=== PATIENT | male | born 2000 | race Caucasian/White ===

== ENCOUNTER 2022-08-19 14:43 | Emergency (ER) | payer OTHER, SELFPAY ==
--- NOTE | ~2022-08-19 | XR_ITS ---
EXAMINATION: XR ANKLE, LEFT CLINICAL INFORMATION: Pain COMPARISON: None TECHNIQUE: AP, lateral, and mortise views of the left ankle. FINDINGS: No acute fracture or dislocation. Ankle mortise is congruent. Talar dome intact. Small ankle joint effusion. Soft tissue swelling anterior and lateral to the ankle. No radiopaque foreign bodies. XR/XR ankle LT min 3V IMPRESSION: * No acute fracture or dislocation. * Small ankle joint effusion.
[2022-08-19 15:09] VITALS: BP 135/86; PULSE 66; RESP 18; TEMP 36.6; O2SAT 99; BMI 40.1
--- NOTE | 2022-08-19 15:10 | ED.GENADULT ---
HPI - General Adult General Chief complaint: Extremity Injury, Lower Stated complaint: Ankle inj Time Seen by Provider: 08/19/22 17:58 Source: patient and RN notes reviewed Mode of arrival: ambulatory History of Present Illness HPI narrative: 22-year-old male presents for evaluation of left ankle pain. He reports he was out shoveling yesterday and twisted his left ankle He reports that he fell to the ground but did not hit his head or lose consciousness. He has been able to walk but has pain to his left ankle He reports mild, 5/10 pain that is worse with walking He used ibuprofen and ice with minimal improvement Related Data Allergies Allergy/AdvReac Type Severity Reaction Status Date / Time No Known Allergies Allergy Verified 08/19/22 15:09 Review of Systems Constitutional: Constitutional: Reports as per HPI, Denies chills and Denies fatigue Cardiovascular: Cardiovascular: Denies chest pain and Denies dyspnea Respiratory: Respiratory: Denies cough and Denies dyspnea Gastrointestinal: Gastrointestinal: Denies abdominal pain, Denies constipation and Denies vomiting Genitourinary: Genitourinary: Denies difficulty urinating and Denies dysuria Musculoskeletal: Musculoskeletal: Reports arthralgias and Reports joint swelling Endocrine: Endocrine: Denies fatigue Physical Exam ED Vital Signs: Vital Signs - 24 hr 08/19/22 15:09 Temperature 97.8 F Pulse Rate 66 Respiratory Rate 18 Blood Pressure 135/86 Pulse Oximetry 99 Oxygen Delivery Method Room Air BMI result Body Mass Index 40.1 Const General: healthy appearing, comfortable, no acute distress, alert and awake Nutritional Appearance: well nourished Orientation/consciousness: patient oriented x3 Eyes Eyelids: Yes eyelids normal Conjunctivae: conjunctivae normal Sclerae: sclerae normal Corneas: corneas normal Pupils: Equal, round and reactive pupils present EOM: EOMs intact bilaterally Resp Effort & Inspection: normal respiratory effort, able to speak in complete sentences, no audible wheezes and not labored Skin General skin exam: no rashes or lesions noted and elasticity normal Lesions: no lesions Rashes: no rashes Neuro General: patient oriented x3 Cranial nerves: Yes Equal, round and reactive pupils present Extrem Other: Mild to moderate edema to the left lateral malleolus with significant tenderness to palpation of the area. Left foot is warm, dry with good perfusion and TP pulses 2+ and equal. No palpable bony abnormality. No calf tenderness General: Yes full ROM Course Course Course Narrative: RME- 22 year old male presenting today with complaints of left ankle pain since yesterday. He states that he was shoveling snow outside and he twisted his left ankle and fell onto the ground. Denies LOC or hitting his head. On exam the patient has edematous left lateral malleolus with significant tenderness to the area. Plan: X-ray left ankle Medical Decision Making Medical Decision Making MDM Narrative: X-ray of the left ankle negative for fracture. Discussed symptomatic care with the patient. He was provided with crutches Differential Diagnosis Ankle sprain Ankle fracture Foot sprain Foot fracture Ankle dislocation Independent Interpretation I performed an independent interpretation of an: Plain X-Ray Interpretation: No acute fracture Radiology Impression Discussion of test interpretation with radiology: I have reviewed the radiologist's reading. Radiologist Impression: No acute fracture of the left ankle. Small joint effusion Discharge Plan Discharge Clinical Impression: Ankle sprain and strain Patient Disposition: Home, Self-Care Instructions: Ankle Sprain (ED) Additional Instructions: Your x-rays showed no fracture of your ankle today. Rest, Ice, and elevate your ankle for the next several days as this will help with reducing the swelling in your ankle. Take ibuprofen or tylenol as directed as needed for pain. Follow up with your primary care physician. If any new or worsening symptoms occur, please return for re-evaluation. Stand Alone Forms: Work/School Release
== END 2022-08-19 20:29 | disposition home or self-care (01) ==
PROVIDERS: Emergency Provider Emergency Medicine
DX: S93.402A Sprain of unspecified ligament of left ankle, initial encounter (principal); S96.912A Strain of unspecified muscle and tendon at ankle and foot level, left foot, initial encounter; X50.1XXA Overexertion from prolonged static or awkward postures, initial encounter; M25.472 Effusion, left ankle; Y93.H1 Activity, digging, shoveling and raking; Y92.014 Private driveway to single-family (private) house as the place of occurrence of the external cause; Y99.9 Unspecified external cause status
CPT/HCPCS: 73610; 99282; 99283